=== PATIENT | male | born 1980 | race Caucasian/White ===

== ENCOUNTER 2020-12-05 23:22 | Emergency (ER) | payer OTHER ==
[~2020-12-05 23:22] MED LIST: COLCHICINE0.6 M1 PO; IBUPROFEN600 MG PO; INDOCIN 50 MG C50 MG PO; PREDNISONE 50 M50 MG PO
[2020-12-06] MEDS ORDERED: PEPCID40 MG PO (02:22)
[2020-12-06] MEDS ORDERED: BENADRYL 50MG C50 MG PO (02:22)
[2020-12-06] MEDS ORDERED: PREDNISONE 50 M50 MG PO (02:22)
== END 2020-12-06 02:37 | disposition home or self-care (01) ==
LOC: ER1 23:22
DX: T78.3XXA Angioneurotic edema, initial encounter (principal); T39.8X5A Adverse effect of other nonopioid analgesics and antipyretics, not elsewhere classified, initial encounter
CPT/HCPCS: 71045; 96365; 96375; 99284; J1200; J2930